=== PATIENT | female | born 1985 | race Caucasian/White ===

== ENCOUNTER 2018-04-25 15:05 | Emergency (ER) | payer OTHER ==
[~2018-04-25] VITALS: Ht 177.8 cm; Wt 65.8 kg
[~2018-04-25 15:05] MED LIST: ACETAMINOPHEN-120 ML PO; ADDERALL 15 MG15 MG PO; AVIANE1 EACH; FLONASE 0.05%50 MCG NS; NORCO 5-325 TA1 EACH PO; PROAIR HFA8.5 GM IH
[2018-04-25 17:03] VITALS: BP 137/89
[2018-04-25] MEDS ORDERED: LINZESS290 MCG PO (17:08)
== END 2018-04-25 17:27 | disposition home or self-care (01) ==
LOC: ER 15:05
DX: K59.00 Constipation, unspecified (principal); J45.909 Unspecified asthma, uncomplicated; Z98.890 Other specified postprocedural states